=== PATIENT | male | born 1960 | race Caucasian/White ===

== ENCOUNTER 2023-01-19 13:40 | Outpatient (AMB) | payer OTHER, SELFPAY ==
--- NOTE | 2023-01-19 13:41 | MHC.OFFWIV ---
Intake Vital Signs 01/19/23 13:44 Height 5 ft 8 in BP 140/90 H Blood Pressure Location Lt brachial Position Sitting Pulse 104 H Pulse Source Pulse Oximeter Temp 96.7 F L Temp Source Temporal Artery Scan Pulse Oximetry (%) 96 Oxygen Delivery Method Room Air Intake Visit Reasons: EP dizzy, heart palpitations, general unwell Intake Note: Pt is here c/o heart palpitations for the last two weeks. Patient Tobacco Use Status: Never used Tobacco Allergies No Known Allergies Allergy (Verified 01/19/23 13:43) Do you need a note to return to daycare/school/sports/work: No HPI HPI Comments History of Present Illness Details 62-year-old male presents for palpitations, elevated blood pressure and a feeling of unwellness. Patient states that he started feeling like this on about 2 weeks ago, when he ran out of his prescription for atenolol. Patient was unable to obtain prescription, and has an appointment with his primary care in January. [facility] Social History Patient Tobacco Use Status: Never used Tobacco Review of Systems Const Details: Constitutional: No Fever, No Chills ENT/Mouth: No Ear Pain, No Hoarseness, No sore throat Eyes: No Eye Pain, No Swelling, No Redness, No Foreign Body Cardiovascular: No Chest Pain, No SOB, positive palpitations Respiratory: No Cough, No Dyspnea Gastrointestinal: No Nausea, No Vomiting, No Diarrhea, No abdominal Pain Genitourinary: No Dysuria, No Hematuria Musculoskeletal: No joint pain, No Myalgias, No Joint Swelling Skin: No Skin lacerations, No rash Neuro: No Weakness, No Numbness, No Paresthesias, No Loss of Consciousness, No Dizziness, No Headache Psych: Positive Anxiety/Panic, No Depression All systems reviewed & are unremarkable except as noted in HPI and below Physical Exam Vital Signs: Last Vital Signs Temp 96.7 F L 01/19/23 13:44 Pulse 104 H 01/19/23 13:44 BP 140/90 H 01/19/23 13:44 Pulse Ox 96 01/19/23 13:44 Oxygen Delivery Method Room Air 01/19/23 13:44 Appearance: Alert. Oriented X3. No acute distress. Eyes: Pupils equal, round and reactive to light. ENT: Pharynx normal. Neck: Normal inspection. Neck supple. CVS: Tachycardic heart rate and rhythm. Pulses normal. Respiratory: No respiratory distress. Breath sounds normal. Skin: Skin warm and dry. Normal skin color. Normal skin turgor. Extremities: No lower extremity edema. Gait well balanced well coordinated. Neuro: No motor deficit. No sensory deficit. Cranial nerves 2-12 intact. Assessment & Plan Assessment & Plan (1) Palpitations: Code(s): R00.2 - Palpitations (2) HTN (hypertension): Code(s): I10 - Essential (primary) hypertension Plan 62-year-old male with past medical history of hypertension, hyperlipidemia, on sertraline, presents for 2 weeks of palpitations, elevated blood pressures, and overall feeling of unwellness. Patient states that he ran out of his atenolol, and try to get a refill however he was denied because he has not seen his primary care physician in over a year. He does have an appointment in January, and is unable to obtain and atenolol script. He is requesting this prescription today. Upon presentation, patient is describing palpitations, his EKG indicates a heart rate of 99 with a normal sinus rhythm without indication of ST elevations or depressions. Patient is anxious, and argumentative. I did tell this patient that he should follow up in the emergency department for proper workup, as his elevated blood pressures can cause heart damage, and that he would require an ACS workup. Patient is belligerent, and states that he does not want to do this, and requires only his blood pressure medications. I did discuss in detail, risks versus benefits of not obtaining a proper workup. Patient verbalized understanding of discharge instructions. Verbalized understandings of signs and symptoms indicating need for emergent intervention. Medications: Refilled atenolol 100 mg PO DAILY 90 tabs 0RF Patient Instructions: You were evaluated for elevated blood pressure and palpitations. It is highly recommended that you present to the emergency department for evaluation. We refilled your atenolol prescription today. You must follow up with primary care provider. Thank you for choosing this urgent care for evaluation. Please follow-up with primary care physician as needed. Return to the emergency department for any new, concerning, or worsening symptoms. Coding Level of Care Code Est Pt Level 3 (54900) Diagnoses Palpitations R00.2 HTN (hypertension) I10
[2023-01-19 13:44] VITALS: BP 140/90; PULSE 104; TEMP 35.9; O2SAT 96
== END 2023-01-19 14:48 | disposition home or self-care (01) ==
PROVIDERS: PCP Nurse Practitioner Family; Visit Provider Nurse Practitioner Family
DX: R00.2 Palpitations (principal); I10 Essential (primary) hypertension
CPT/HCPCS: 99213